=== PATIENT | female | born 1995 | race African-American/Black ===

== ENCOUNTER 2019-08-04 22:01 | Emergency (ER) | payer MEDICAID ==
[~2019-08-04] VITALS: Ht 157.5 cm; Wt 66.0 kg
[2019-08-04] MEDS ORDERED: ACETAMINOPHEN 325MG TABLET PO STA (23:17)
[2019-08-04] MEDS ORDERED: IPRATROPIUM/ALBUTEROL 0.5-3(2.5)MG/3ML NEB HHN ONE (23:30)
[2019-08-04] MEDS ORDERED: IBUPROFEN 600MG TABLET PO ONE (23:30)
[2019-08-05 01:29] VITALS: BP 121/82
== END 2019-08-05 01:35 | disposition home or self-care (01) ==
LOC: ER 22:01
DX: J40 Bronchitis, not specified as acute or chronic (principal); R50.81 Fever presenting with conditions classified elsewhere; R51 Headache
CPT/HCPCS: 71045; 81025; 87804; 94640; 99284; J7620; Z7610